=== PATIENT | female | born 2000 | race Native Hawaiian/Other Pacific Islander ===

== ENCOUNTER 2025-01-14 12:36 | Inpatient (IN) | payer OTHER ==
[~2025-01-14] VITALS: Ht 167.6 cm; Wt 60.5 kg
[2025-01-14] MEDS: NICOTINE 14 MG/24 HR TRANSDERMAL TD SCH (09:00)
[2025-01-14 13:14] LABS: PLATELET COUNT, AUTOMATED 279 10^3/uL (150-450)
[2025-01-14 13:57] LABS: AMPHETAMINES LEVEL URINE NEGATIVE (NEGATIVE); BARBITURATES URINE NEGATIVE (NEGATIVE); BENZODIAZEPINES URINE NEGATIVE (NEGATIVE); COCAINE METABOLITE URINE NEGATIVE (NEGATIVE)
[2025-01-14 13:58] LABS: CANNABINOIDS URINE NEGATIVE (NEGATIVE); ETHYL ALCOHOL (ETHANOL) < 0.003 % (0.000-0.010); METHADONE URINE NEGATIVE (NEGATIVE); OPIATES URINE NEGATIVE (NEGATIVE); PHENCYCLIDINE URINE NEGATIVE (NEGATIVE)
[2025-01-14 14:00] LABS: ALT/SGPT 9 U/L (7.0-40); AST/SGOT 16 U/L (<34); CALCIUM LEVEL 9.1 MG/DL (8.5-10.1); CARBON DIOXIDE LEVEL 26 MMOL/L (20-31); CHLORIDE LEVEL 102 MMOL/L (98-107); CREATININE FOR GFR 0.73 MG/DL (0.55-1.30); GLOMERULAR FILTRATION RATE > 90.0 (>60); POTASSIUM SERUM 3.6 MMOL/L (3.5-5.1); SALICYLATE LEVEL < 3.0 MG/DL (<30); SODIUM LEVEL 137 MMOL/L (136-145)
[2025-01-14 14:05] LABS: HCG, SERUM QUALITATIVE NEGATIVE (NEGATIVE)
[2025-01-14] MEDS ORDERED: HOME MED LIST COMPLETE! XX SCH (14:20)
[2025-01-14] MEDS ORDERED: LORazepam 1 MG TAB PO PRN (15:20)
[2025-01-14] MEDS ORDERED: IBUPROFEN 400 MG TAB PO PRN (15:20)
[2025-01-14] MEDS ORDERED: ACETAMINOPHEN 325 MG TAB PO PRN (15:20)
[2025-01-14] MEDS ORDERED: traZODone 50 MG TAB PO PRN (15:20)
[2025-01-14] MEDS ORDERED: OLANZapine 5 MG TAB PO PRN (15:20)
[2025-01-14] MEDS ORDERED: MAALOX 30 ML SUSP *UDC PO PRN (15:20)
[2025-01-14] MEDS ORDERED: MOM 30 ML SUSPENSION UDC PO PRN (15:20)
[2025-01-14] MEDS ORDERED: HALOPERIDOL 5 MG TAB PO PRN (15:20)
[2025-01-14 18:49] VITALS: BP 117/81; TEMP 97.5
[2025-01-15 06:28] VITALS: BP 121/82; TEMP 97.3; O2SAT 100
== END 2025-01-15 13:33 | disposition home or self-care (01) | DRG 881 ==
LOC: M ED 12:36 → M ED INP 15:17 → EDBD 15:17 → M PSY 18:07
PROVIDERS: ADMIT Internal Medicine; ATTEND Internal Medicine
DX: F43.21 Adjustment disorder with depressed mood (principal); R45.851 Suicidal ideations; Z63.0 Problems in relationship with spouse or partner